=== PATIENT | male | born 1955 | race Caucasian/White ===

== ENCOUNTER 2017-02-23 13:47 | Inpatient (IN) | payer OTHER ==
[~2017-02-23] VITALS: Ht 172.7 cm; Wt 74.3 kg
[2017-02-23] MEDS ORDERED: ZOLP10TA5 PO (14:10)
[2017-02-23] MEDS ORDERED: HYDR-3240 PO (14:10)
[2017-02-23] MEDS ORDERED: CLON0.5T20 PO (14:10)
[2017-02-23] MEDS ORDERED: ATOR10TA9 PO (14:11)
[2017-02-23] MEDS ORDERED: NITROGLYCERIN OINT 2%, 1GM TP ONE ×2 (14:17→14:30)
[2017-02-23] MEDS ORDERED: SODIUM CHLORIDE FLUSH 10ML SYR IVF ONE (14:30)
[2017-02-23] MEDS ORDERED: SODIUM CHLORIDE 0.9% 1,000ML IVBOLUS ONE (14:30)
[2017-02-23 14:49] LABS: HEMATOCRIT 48.5 % (39.2-51.8); HEMOGLOBIN 17.2 g/dL (13.7-18.0); WHITE BLOOD COUNT 4.9 x10^3/uL (3.4-10)
[2017-02-23 15:05] LABS: IS PT STATUS REG ER OR PRE ER? YES
[2017-02-23 15:32] LABS: ASPARTATE AMINO TRANSFERASE 53 U/L (15-37); BLOOD UREA NITROGEN 15 mg/dL (7-18)
[2017-02-23] MEDS ORDERED: FENTANYL PF 100 MCG/2ML ONE ×2 (16:02→17:32)
[2017-02-23] MEDS ORDERED: MIDAZOLAM 1 MG/ML, 5ML ONE ×2 (16:02→17:32)
[2017-02-23] MEDS ORDERED: VERAPAMIL 2.5 MG/ML, 2ML ONE (16:02)
[2017-02-23] MEDS ORDERED: NITROGLYCERIN 5 MG/ML, 10ML ONE (16:02)
[2017-02-23] MEDS ORDERED: TICAGRELOR 90 MG TABLET ONE (16:02)
[2017-02-23] MEDS ORDERED: BIVALIRUDIN 250 MG ONE ×2 (16:03→17:55)
[2017-02-23] MEDS ORDERED: HEPARIN 1,000 UNITS/ML, 10ML ONE (16:03)
[2017-02-23] MEDS ORDERED: LIDOCAINE 2%, 20ML ONE (16:03)
[2017-02-23] MEDS ORDERED: SODIUM CHLORIDE FLUSH 10ML SYR IVF PRN (16:30)
[2017-02-23] MEDS ORDERED: HYDROcodone/APAP 5/325 TABLET PO PRN (16:30)
[2017-02-23] MEDS ORDERED: DIPHENHYDRAMINE 50 MG/ML, 1ML ONE (17:32)
[2017-02-23] MEDS ORDERED: BIVALIRUDIN 250 MG in DEXTROSE 5% 50 ML IV SCH (17:57)
[2017-02-23] MEDS ORDERED: ACETAMINOPHEN 325 MG TABLET PO PRN (18:00)
[2017-02-23] MEDS: SODIUM CHLORIDE 0.45% 1,000 ML IV SCH (20:16)
[2017-02-23] MEDS: ATORVASTATIN 80 MG TABLET PO SCH (21:04)
[2017-02-23] MEDS: TICAGRELOR 90 MG TABLET PO SCH (21:06)
[2017-02-23] MEDS: ZOLPIDEM 5MG TABLET PO PRN (22:18)
[2017-02-24] MEDS: SODIUM CHLORIDE 0.45% 1,000 ML IV SCH (00:37)
[2017-02-24 02:53] VITALS: BP 148/89
[2017-02-24 04:10] VITALS: BP 136/86
[2017-02-24 05:53] LABS: BLOOD UREA NITROGEN 11 mg/dL (7-18)
[2017-02-24] MEDS: ASPIRIN 81 MG TABLET EC PO SCH (08:13)
[2017-02-24] MEDS: TICAGRELOR 90 MG TABLET PO SCH ×2 (08:13→21:34)
[2017-02-24] MEDS: METOPROLOL TARTRATE 25 MG TABLET PO SCH ×2 (12:11→21:33)
[2017-02-24 15:27] VITALS: BP 111/71
[2017-02-24 20:20] VITALS: BP 117/72
[2017-02-24] MEDS: ATORVASTATIN 80 MG TABLET PO SCH (21:33)
[2017-02-25 04:31] VITALS: BP 105/70
[2017-02-25 07:35] VITALS: BP 104/71
[2017-02-25] MEDS: METOPROLOL TARTRATE 25 MG TABLET PO SCH ×2 (09:36→21:31)
[2017-02-25] MEDS: ASPIRIN 81 MG TABLET EC PO SCH (09:36)
[2017-02-25] MEDS: TICAGRELOR 90 MG TABLET PO SCH ×2 (09:36→21:31)
[2017-02-25] MEDS: LISINOPRIL 5 MG TABLET PO SCH (09:36)
[2017-02-25 12:51] VITALS: BP 99/65
[2017-02-25 19:53] VITALS: BP 108/71
[2017-02-25] MEDS: ZOLPIDEM 5MG TABLET PO PRN (21:31)
[2017-02-25] MEDS: ATORVASTATIN 80 MG TABLET PO SCH (21:32)
[2017-02-26 01:24] VITALS: BP 102/70
[2017-02-26 06:59] VITALS: BP 108/69
[2017-02-26] MEDS: ASPIRIN 81 MG TABLET EC PO SCH (08:20)
[2017-02-26] MEDS: TICAGRELOR 90 MG TABLET PO SCH ×2 (08:20→20:04)
[2017-02-26] MEDS: LISINOPRIL 5 MG TABLET PO SCH (08:20)
[2017-02-26] MEDS: METOPROLOL TARTRATE 25 MG TABLET PO SCH ×2 (11:21→22:42)
[2017-02-26 13:30] VITALS: BP 102/64
[2017-02-26 19:00] VITALS: BP 114/75
[2017-02-26] MEDS: ATORVASTATIN 80 MG TABLET PO SCH (20:04)
[2017-02-26 22:38] VITALS: BP 110/54
[2017-02-26] MEDS: ZOLPIDEM 5MG TABLET PO PRN (22:42)
[2017-02-27 02:25] VITALS: BP 102/70
[2017-02-27 07:56] VITALS: BP 111/77
[2017-02-27] MEDS: LISINOPRIL 5 MG TABLET PO SCH (07:58)
[2017-02-27] MEDS: ASPIRIN 81 MG TABLET EC PO SCH (07:58)
[2017-02-27] MEDS: TICAGRELOR 90 MG TABLET PO SCH ×3 (07:58→19:46)
[2017-02-27] MEDS: METOPROLOL TARTRATE 25 MG TABLET PO SCH (11:00)
[2017-02-27 13:16] VITALS: BP 126/84
[2017-02-27] MEDS ORDERED: MIDAZOLAM 1 MG/ML, 5ML ONE (14:31)
[2017-02-27] MEDS ORDERED: LIDOCAINE 2%, 20ML ONE (14:32)
[2017-02-27] MEDS ORDERED: FENTANYL PF 100 MCG/2ML ONE (14:32)
[2017-02-27] MEDS ORDERED: HEPARIN 1,000 UNITS/ML, 10ML ONE (14:32)
[2017-02-27] MEDS ORDERED: VERAPAMIL 2.5 MG/ML, 2ML ONE (14:32)
[2017-02-27] MEDS ORDERED: BIVALIRUDIN 250 MG ONE (14:32)
[2017-02-27] MEDS ORDERED: TICAGRELOR 90 MG TABLET ONE (14:32)
[2017-02-27] MEDS ORDERED: DIPHENHYDRAMINE 50 MG/ML, 1ML ONE (14:56)
[2017-02-27] MEDS ORDERED: BIVALIRUDIN 250 MG in DEXTROSE 5% 50 ML IV SCH (15:30)
[2017-02-27] MEDS: SODIUM CHLORIDE 0.9% 1,000 ML IV SCH ×3 (17:15→23:06)
[2017-02-27] MEDS: ATORVASTATIN 80 MG TABLET PO SCH (19:46)
[2017-02-27 20:16] VITALS: BP 101/65
[2017-02-27] MEDS ORDERED: METOPROLOL TARTRATE 25 MG TABLET PO SCH (22:30)
[2017-02-27 22:44] VITALS: BP 112/74
[2017-02-28 01:30] VITALS: BP 131/81
[2017-02-28 05:41] VITALS: BP 116/71
[2017-02-28] MEDS ORDERED: METOPROLOL SUCCINATE 25 MG TAB.ER.24H PO SCH (06:00)
[2017-02-28] MEDS: ASPIRIN 81 MG TABLET EC PO SCH (07:51)
[2017-02-28] MEDS: TICAGRELOR 90 MG TABLET PO SCH ×2 (07:51→07:52)
[2017-02-28] MEDS: LISINOPRIL 5 MG TABLET PO SCH (07:51)
[2017-02-28 08:32] VITALS: BP 114/77
[2017-02-28] MEDS ORDERED: LISI5TAB7 PO (08:55)
[2017-02-28] MEDS ORDERED: TICA90TA PO (08:55)
[2017-02-28] MEDS ORDERED: ATOR-2 PO (08:55)
[2017-02-28] MEDS ORDERED: ASPI-621 PO (08:55)
[2017-02-28] MEDS ORDERED: METO25TA91 PO (08:55)
[2017-02-28] MEDS ORDERED: NITR0.4T28 SL (08:55)
[2017-02-28 10:24] LABS: BLOOD UREA NITROGEN 21 mg/dL (7-18)
[2017-02-28] MEDS: SODIUM CHLORIDE 0.9% 1,000 ML IV SCH (11:48)
[2017-02-28 12:32] VITALS: BP 125/82
== END 2017-02-28 13:53 | disposition home or self-care (01) | DRG 247 ==
LOC: ED 16:10 → EDIP 16:11 → ED 17:01 → ICU 18:15 → 5SO 02-24 12:53 → DCLOUNGE 02-28 13:10
PROVIDERS: ADMIT Internal Medicine Cardiovascular Disease; ATTEND Internal Medicine Cardiovascular Disease
PROC: 027035Z Dilation of Coronary Artery, One Artery with Two Drug-eluting Intraluminal Devices, Percutaneous Approach (ICD-10-PCS; 2017-02-23)
PROC: 4A023N7 Measurement of Cardiac Sampling and Pressure, Left Heart, Percutaneous Approach (ICD-10-PCS; 2017-02-23)
PROC: B2111ZZ Fluoroscopy of Multiple Coronary Arteries using Low Osmolar Contrast (ICD-10-PCS; 2017-02-23)
PROC: B2151ZZ Fluoroscopy of Left Heart using Low Osmolar Contrast (ICD-10-PCS; 2017-02-23)
PROC: 027034Z Dilation of Coronary Artery, One Artery with Drug-eluting Intraluminal Device, Percutaneous Approach (ICD-10-PCS; principal; 2017-02-27)
PROC: 4A033BC Measurement of Arterial Pressure, Coronary, Percutaneous Approach (ICD-10-PCS; 2017-02-27)
DX: I21.09 ST elevation (STEMI) myocardial infarction involving other coronary artery of anterior wall (principal); E78.5 Hyperlipidemia, unspecified; I25.110 Atherosclerotic heart disease of native coronary artery with unstable angina pectoris; I10 Essential (primary) hypertension; I25.5 Ischemic cardiomyopathy; Z82.49 Family history of ischemic heart disease and other diseases of the circulatory system; Z87.891 Personal history of nicotine dependence
CPT/HCPCS: 36415; 71010; 80048; 80053; 82040; 83690; 84484; 85025; 85610; 85730; 87081; 93005; 93306; 93458; 93571; 96360; 99156; 99157; C1760; C1769; C1894; C9600; J0583; J1644; J2250; J3010; J3490; C1725; C1874; C1887; J1200; J7030; Q9967